=== PATIENT | female | born 1950 | race Caucasian/White ===

== ENCOUNTER 2017-04-06 11:20 | Emergency (ER) | payer MEDICARE, OTHER ==
--- NOTE | ~2017-04-06 | CR173 ---
[facility] A Service of [facility] & [facility] RADIOLOGY TEXT RESULTS PATIENT: LOUIS BRAND LOCATION: [facility] : 52 UNIT #: [id number] AGE: [address]: Delilah Arita SEX: F ORDER DR: [id number] [facility] [address] [place], [place] [address] [id number] P MR#: [id number] Acc #: [id number] NAME: LOUIS BRAND : 1950 SEX: F STUDY DATE/TIME: UNIT: [facility] ROOM: STUDY DESCRIPTION: CR Knee 3 Views Rt Attending Physician: Delilah Arita Pa-C Ordering Physician: Ed Doc Lucina Lerma Primary Care Physician: Daljit Venegas M.D. MEDICAL IMAGING REPORT This report is preliminary unless electronic signature is present EXAM Right knee 3 views 04/06/2017 1221 hours HISTORY Patient fell out of bed today with pain in right knee COMPARISON Right tibia and fibula 10/20/2010 FINDINGS AP, cross-table lateral, and sunrise views demonstrate no joint effusion, fracture or dislocation. IMPRESSION There is no joint effusion, fracture or dislocation. Dictated by... Tanya Riley M.D. THIS IS AN ELECTRONICALLY VERIFIED REPORT Tanya Riley M.D. at 04/06/2017 2:30 PM Joi TD: 04/06/2017 13:07 JOB #: [id number] MEDICAL IMAGING REPORT Page 1 of 1 COPY
--- NOTE | ~2017-04-06 | CT71 ---
[facility] A Service [facility] RADIOLOGY TEXT RESULTS PATIENT: LOUIS BRAND LOCATION: [facility] : 52 UNIT #: [id number] AGE: [address]: Delilah Arita SEX: F ORDER DR: [id number] [address] [address] [id number] P MR#: [id number] Acc #: [id number] NAME: LOUIS BRAND : 1950 SEX: F STUDY DATE/TIME: 04/06/2017 12:07 UNIT: [facility] ROOM: STUDY DESCRIPTION: CT Head Wo Contrast Attending Physician: Delilah Arita Pa-C Ordering Physician: Ed Doctor [id number] [facility] Primary Care Physician: Daljit Venegas M.D. MEDICAL IMAGING REPORT This report is preliminary unless electronic signature is present EXAM CT head INDICATION Fall off a sofa this morning. Bruising and swelling of the left forehead area. Loss of consciousness. TECHNIQUE CT of the head without contrast. This CT exam was performed with one or more of the following radiation dose reduction techniques: automatic exposure control, adjustment of mA and/or kV according to patient size, and iterative reconstruction. COMPARISON None available. FINDINGS There is a small superficial hematoma over the left frontal convexity. There is no foreign body or fracture. No acute intracranial hemorrhage, mass lesion, or acute infarct. Rivas matter differentiation is normal. The ventricles and basilar cisterns are normal. No extraaxial collections. IMPRESSION 1. No acute intracranial findings. 2. Mild scalp hematoma over the left frontal convexity. Dictated by... Guzman Reyes M.D. THIS IS AN ELECTRONICALLY VERIFIED REPORT [facility] A Service [facility] RADIOLOGY TEXT RESULTS PATIENT: LOUIS BRAND LOCATION: [facility] : 52 UNIT #: [id number] AGE: [address]: Delilah Arita SEX: F ORDER DR: Guzman Reyes M.D. at 04/06/2017 3:37 PM Paul TD: 04/06/2017 12:49 JOB #: [id number] MEDICAL IMAGING REPORT Page 1 of 1 COPY
[~2017-04-06 11:20] MED LIST: AIRGO ROLLING W1 PKT MC; AMITIZA24 MCG PO; AMLODIPINE BESYL5 MG PO; BACTRIM DS TABL1 TA1 PO; CRESTOR PO; CRESTOR10 MG PO; CYMBALTA PO; CYMBALTA30 MG PO; DAILY VALUE1 EACH PO; FENOFIBRATE150 MG PO; FISH OIL 1,2001 CAP PO; FLEXERIL10 MG PO; GINKGO BILOBA120 M1 PO; HCTZ PO; HYDROCODON-ACE1 EAC4 PO; HYDROCODONE-APA1 T54 PO; HYDROXYZINE HCL10 MG PO; IBUPROFEN800 MG PO; LAMICTAL PO; LAMICTAL100 MG PO; LEVOXYL150 MC1 PO; LEVOXYL150 MCG PO; LIPITOR PO; LIPITOR40 MG PO; LORTAB 5/500 TA1 TA1 PO; MEDROL DOSEPAK4 MG PO; NASONEX17 GM; NICOTINE TRANSD21 MG EXT; PHENERGAN25 MG PO; PRAVASTATIN SOD20 MG PO; PREVACID PO; PREVACID SOLUTA30 M1 PO; SEROQUEL XR150 MG PO; TERBINAFINE (L250 M1 PO; TRILIPIX135 MG PO; VANCOMYCIN1.25 GM/25 IV; VITAMIN D1000 UNIT PO; WELLBUTRIN PO; WELLBUTRIN SR150 MG PO; ZYPREXA PO; ZYPREXA15 MG PO
== END 2017-04-06 12:56 | disposition home or self-care (01) ==
LOC: CFTX 11:20 → CED 11:20 → CFTX 11:25
DX: S86.911A Strain of unspecified muscle(s) and tendon(s) at lower leg level, right leg, initial encounter (principal); S00.03XA Contusion of scalp, initial encounter; I10 Essential (primary) hypertension; K21.9 Gastro-esophageal reflux disease without esophagitis; F17.200 Nicotine dependence, unspecified, uncomplicated; Z88.5 Allergy status to narcotic agent; Z79.899 Other long term (current) drug therapy; W18.30XA Fall on same level, unspecified, initial encounter; Y92.009 Unspecified place in unspecified non-institutional (private) residence as the place of occurrence of the external cause
CPT/HCPCS: 70450; 73562; 99284

== ENCOUNTER 2017-04-08 18:53 | Observation (INO) | payer MEDICARE, OTHER ==
[~2017-04-08] VITALS: Ht 172.7 cm; Wt 94.2 kg
--- NOTE | ~2017-04-08 | CT71 ---
[facility] A Service of [facility] & [facility] RADIOLOGY TEXT RESULTS PATIENT: LOUIS BRAND LOCATION: [facility] 317-01 : 54 UNIT #: [id number] AGE: [address]: Florence Shepherd MD SEX: F ORDER DR: [id number] [facility] [address] [facility]. [place], [place] [address] [id number] I MR#: [id number] Acc #: [id number] NAME: LOUIS BRAND : 1950 SEX: F STUDY DATE/TIME: 04/08/2017 19:43 UNIT: [address] ROOM: [facility] STUDY DESCRIPTION: CT Head Wo Contrast Attending Physician: Ilan David M.D. Ordering Physician: Heber Lerma M.D. Primary Care Physician: Daljit Venegas M.D. MEDICAL IMAGING REPORT This report is preliminary unless electronic signature is present EXAM CT head, noncontrast, 04/08/2017. HISTORY 66-year-old female in the ED after head injury. Fell, striking head [address] on 04/06/2017. Confusion/mental status changes noted. TECHNIQUE CT examination of the head without IV contrast. This CT exam was performed with one or more of the following radiation dose reduction techniques: automatic exposure control, adjustment of mA and/or kV according to patient size, and iterative reconstruction. FINDINGS No acute intracranial abnormality is demonstrated. Small left supraorbital scalp contusion. No visible skull fracture. Mild generalized cerebral atrophy. No evidence of intracranial hemorrhage, mass, mass effect, cerebral edema or progressive ventricular enlargement. IMPRESSION 1. No acute intracranial abnormality. 2. Small left supraorbital scalp contusion. No skull fracture. 3. Stable mild diffuse chronic changes as noted. 4. No change since 04/06/2017. Dictated by... Kb Sage M.D. THIS IS AN ELECTRONICALLY VERIFIED REPORT Kb Sage M.D. at 04/09/2017 4:55 PM RGW/jt [facility] A Service of [facility] & [facility] RADIOLOGY TEXT RESULTS PATIENT: LOUIS BRAND LOCATION: [facility] 317-01 : 52 UNIT #: [id number] AGE: [address]: Florence Shepherd MD SEX: F ORDER DR: TD: 04/09/2017 00:37 JOB #: [id number] MEDICAL IMAGING REPORT Page 1 of 1 COPY
--- NOTE | ~2017-04-08 | EKG ---
PATIENT: LOUIS BRAND UNIT #: [id number] Ventricular Rate: 68 BPM Atrial Rate: 68 BPM P-R Interval: 156 ms QRS Duration: 92 ms Q-T Interval: 396 ms QTC Calculation(Bezet): 421 ms P Falkland: 62 degrees Calculated R Falkland: 29 degrees Calculated T Falkland: 65 degrees Diagnosis Line: Normal sinus rhythm Diagnosis Line: Normal ECG Diagnosis Line: When compared with ECG of 03-JAN-2016 14:07, Diagnosis Line: No significant change was found Diagnosis Line: Confirmed by IAN ZAMUDIO [facility] ([id number]) on Diagnosis Line: 04/09/2017 2:00:12 PM INTERPRETING MD: LIZZ DOAN
--- NOTE | ~2017-04-08 | MR133 ---
[facility] A Service of [facility] RADIOLOGY TEXT RESULTS PATIENT: LOUIS BRAND LOCATION: [facility] 317 : 52 UNIT #: [id number] AGE: [address]: Florence Shepherd MD SEX: F ORDER DR: [id number] [facility] [address] [facility]. [place], [place] [address] [id number] I MR#: [id number] Acc #: [id number] NAME: LOUIS BRAND : 1950 SEX: F STUDY DATE/TIME: 04/09/2017 11:50 UNIT: [address] ROOM: [facility] STUDY DESCRIPTION: MR MRA Neck WWo Contrast Attending Physician: Florence Shepherd M.D. Ordering Physician: Kate Nam M.D. Primary Care Physician: Daljit Venegas M.D. MRI CENTER REPORT This report is preliminary unless electronic signature is present. EXAM MRA neck. INDICATIONS Fall 3 days ago. Altered mental status. Short-term memory loss. Trauma. TECHNIQUE 3-D [id number] MRA of the neck was performed without contrast. Contrast enhanced MRA was then performed. COMPARISON None available. FINDINGS Evaluation for significant stenosis is based upon the NASCET criteria. There is a three-vessel aortic arch. Both common carotid arteries and the internal carotid arteries are widely patent. There is no evidence for significant stenosis. The vertebral arteries are patent with antegrade flow. IMPRESSION 1. No evidence of a significant carotid arterial stenosis. Dictated by... Guzman Reyes M.D. THIS IS AN ELECTRONICALLY VERIFIED REPORT Guzman Reyes M.D. at 04/10/2017 5:13 PM BUTCH/sincere TD: 04/09/2017 17:58 JOB #: [id number] [facility] A Service of [facility] RADIOLOGY TEXT RESULTS PATIENT: LOUIS BRAND LOCATION: [facility] 317 : 52 UNIT #: [id number] AGE: [address]: Florence Shepherd MD SEX: F ORDER DR: MRI CENTER REPORT Page 1 of 1 COPY
--- NOTE | ~2017-04-08 | MR122 ---
[facility] A Service of [facility] RADIOLOGY TEXT RESULTS PATIENT: LOUIS BRAND LOCATION: [facility] : 52 UNIT #: [id number] AGE: [address]: Florence Shepherd MD SEX: F ORDER DR: [id number] [facility] [address] [facility]. [place], [place] [address] [id number] I MR#: [id number] Acc #: [id number] NAME: LOUIS BRAND : 1950 SEX: F STUDY DATE/TIME: 04/09/2017 11:50 UNIT: [facility]U ROOM: [address] [place] [address] DESCRIPTION: MR MRA Head Wo Contrast Attending Physician: Florence Shepherd M.D. Ordering Physician: Physician Non-Staff Primary Care Physician: Daljit Venegas M.D. MRI CENTER REPORT This report is preliminary unless electronic signature is present. EXAM MRI head INDICATIONS Fall. Dizziness. IMPRESSION Fall. Altered mental status. Short-term memory loss. TECHNIQUE 3-D tnas-[id number] MRA of the head without contrast. COMPARISON MRI brain 04/03/2017. FINDINGS The intracranial internal carotid arteries are patent. There is no evidence of a significant stenosis. The middle cerebral arteries and the anterior cerebral arteries are patent. The anterior communicating artery is patent. Both posterior communicating arteries are patent. The vertebral basilar arteries and the posterior cerebral arteries are within normal limits. There is no evidence of a significant vascular stenosis, thrombosis, or aneurysm. Both middle meningeal arteries are patent. Please note there is some attenuation of the right middle cerebral artery near the trifurcation, however, this appears to be used due to some signal loss of this area, rather than a true stenosis. There could be some mild atherosclerotic disease in this area, however. IMPRESSION 1. No evidence of a significant vascular thrombosis or aneurysm. 2. There is some narrowing of the right middle cerebral artery near [facility] A Service of [facility] RADIOLOGY TEXT RESULTS PATIENT: LOUIS BRAND LOCATION: [facility] : 52 UNIT #: [id number] AGE: [address]: Florence Shepherd MD SEX: F ORDER DR: the trifurcation, however there is also signal loss in this region which may partially account for the poor signal in this area. There is probably some mild atherosclerotic disease, however, the vessels are all widely patent all widely patent. Dictated by... Guzman Reyes M.D. THIS IS AN ELECTRONICALLY VERIFIED REPORT Guzman Reyes M.D. at 04/10/2017 5:13 PM BUTCH/arturo TD: 04/09/2017 18:14 JOB #: [id number] MRI CENTER REPORT Page 1 of 1 COPY
--- NOTE | ~2017-04-08 | HP ---
Unit #: [id number] #: [id number] Patient: LOUIS BRAND [id number] [address] [place], [place] [address] [id number] I MR#: [id number] NAME: LOUIS BRAND ROOM: 317 Age: 66 Sex: F Admission Date: 04/08/2017 : 1950 Attending Physician: Florence Shepherd M.D. Primary Care Physician: Daljit Venegas M.D. HISTORY AND PHYSICAL CHIEF COMPLAINT Change in mental status. DISCUSSION This is a 66-year-old female, with past medical history of hypothyroidism, dyslipidemia, bipolar, GERD, hypertension, chronic constipation, diabetes, chronic back pain. She presented to the emergency room with chief complaint of change in mental status, slightly being confused. She knows where she is right now, hospital, but did not tell me the right date of and year. She, on work up, found to have marijuana in urine, otherwise, all workup unremarkable. She has been admitted for change in mental status. She denies chest pain. She has been having, also, some nausea but denies fever, chills, cough, or any other complaint. She had a fall two days ago at home with CT of the head being negative. She was complaining of slight ankle pain and x-ray of knee was, also, negative. She denies any other complaint. PAST MEDICAL HISTORY 1. History of dyslipidemia. 2. Hypothyroidism. 3. Bipolar. 4. GERD. 5. Hypertension. 6. Chronic constipation. 7. Diabetes. 8. Chronic back pain. PAST SURGICAL HISTORY 1. History of basal cell carcinoma of the right foot and also skin cancer of right side of face status post excision. 2. History of hysterectomy. 3. Left foot, ORIF. 4. History of breast implant and removal. 5. History of colonoscopy. 6. Tonsillectomy. 7. Adenoidectomy. 8. History of epidural steroid injection. ALLERGIES She is allergic to morphine which causes itching. HOME MEDICATIONS Medications from home is the followin. Neurontin 100 mg at bedtime p.r.n. Unit #: [id number] #: [id number] Patient: LOUIS BRAND 2. Olanzapine 20 mg at bedtime p.r.n. 3. Baclofen three times daily 10 mg 4. Lipitor 40 mg daily 5. Januvia 100 mg daily 6. Amlodipine 10 mg daily 7. Amitiza 24 mcg twice daily 8. Linzess 145 mcg daily 9. Promethazine 4.5 mg three times daily p.r.n. 10. Lasix 20 mg daily 11. Fenofibrate 150 mg daily 12. Levothyroxine 50 mcg daily 13. Lamictal 200 mg twice daily 14. Cymbalta 60 mg twice daily 15. Prevacid 20 mg daily SOCIAL HISTORY She use to smoke two packs daily for fifty years, she is using right now, electronic cigarettes. She denies any illicit drug use though marijuana is positive in the urine. REVIEW OF SYSTEMS Negative except in history of present illness. PHYSICAL EXAMINATION GENERAL: Middle-aged female lying in the bed comfortably, currently not in any distress. She is alert, awake, oriented x1, not in any distress. VITAL SIGNS: Current vitals are following, temperature 8s 98.4, heart rate 71, respiratory rate 19, blood pressure 175/88, oxygen 97% on room air. HEENT EXAMINATION: Pupils equal reactive to light. Head: Normocephalic and atraumatic. NECK: Supple. No jugular venous distention. No thyromegaly. HEART: S1 and S2, regular rate and rhythm. LUNGS: Clear to auscultation bilaterally. No rhonchi. No wheezing. ABDOMEN: Soft, nontender, and nondistended. Bowel sounds are positive. HEART: S1 and S2 regular rate and rhythm. ABDOMEN: Soft, nontender, nondistended. Bowel sounds positive. EXTREMITIES: Inspection normal. No cyanosis, no clubbing, and no edema. SKIN: No rash. PSYCH: Normal mood and affect. DIAGNOSTIC STUDIES LABORATORY: Laboratory workup is the following, Urine drug screen positive for marijuana. Urinalysis is negative. Ammonia level is 35. Chemistry, sodium 140, potassium 3.3, chloride 106, C02 28, glucose 131, BUN 9, creatinine 1.5. Otherwise LFT within normal limits. INR is 1. White count 7, hemoglobin 13, hematocrit 41, platelets 193. IMAGING: She had a CT scan of the head without contrast which shows no acute intracranial findings, mild scalp hematoma over the left frontal convexity. X-ray of the right knee, no acute finding, no joint effusion fracture or dislocation. ASSESSMENT/PLAN 1. Change in mental status, questionable etiology, CT scan is negative, will get MRI of the brain, will ask neurology, Dr. Nam to Unit #: [id number] #: [id number] Patient: LOUIS BRAND evaluate. 2. Status post fall, CT scan showed mild scalp hematoma. 3. Mild hypokalemia, replace. 4. Urine toxicology positive for marijuana. 5. History of dyslipidemia. 6. Hypothyroidism, continue Synthroid, recheck TSH. 7. History of bipolar. 8. GERD. 9. Hypertension. 10. Chronic constipation. 11. Diabetes, continue Januvia, and place on sliding scale. 12. History of chronic back pain. 13. DVT prophylaxis, will place the patient on Lovenox 30 mg subcu daily Dictated by Lucnia Michelle TD: 04/09/2017 07:13 JOB #: [id number] HISTORY AND PHYSICAL Page 1 of 1 X X HISTORY AND PHYSICAL
--- NOTE | ~2017-04-08 | CO ---
Unit #: [id number] #: [id number] Patient: LOUIS BRAND [id number] [facility] [address] [place], [place] [address] [id number] I MR#: [id number] NAME: LOUIS BRAND ROOM: 317 Age: 66 Sex: F Admission Date: 04/08/2017 : 1950 Attending Physician: Florence Shepherd M.D. Primary Care Physician: Daljit Venegas M.D. Consultation Date: 04/09/2017 CONSULTATION REPORT PRIMARY CARE PHYSICIAN Daljit Venegas M.D. REASON FOR CONSULTATION Mental status changes. PATIENT IDENTIFICATION This is a 66-year-old, right-handed white female, who was evaluated in room 317 at [facility]. SOURCE OF INFORMATION The patient and evaluation done by admitting team. PROBLEM LIST 1. History of bipolar disorder. 2. Hypothyroidism. 3. Dyslipidemia. 4. GERD. 5. Hypertension. 6. Chronic constipation. 7. Diabetes. 8. Chronic back pain. 9. History of breast implant and removal. 10. History of hysterectomy. 11. History of basal cell carcinoma, right foot and also skin. Cancer of the right side of the face, status post excision. 12. Left foot ORIF. 13. History of colonoscopy. 14. Tonsillectomy. 15. Adenoidectomy. 16. History of epidural steroid injections. 17. Fall lately. 18. Looks like she has had evaluation for cognitive decline in the past. HISTORY OF PRESENT ILLNESS This is a 66-year-old right-handed white female, who was actually brought in yesterday because she was confused. Her history is very sketchy, but it looks like she ended up coming to the hospital on 04/06/2017 and that was after a fall. The patient had some scalp and left frontal very small hematoma. She said that she fell at night, but she cannot tell me anymore than that. She seemed to have some either attention problem or memory problems or cognitive changes and it looks like this is something that has been going on for quite some time. She is bipolar and she says that she know she is at [facility], this is Tuesday and then she starts Unit #: [id number] #: [id number] Patient: LOUIS BRAND struggling as she cannot concentrate. She cannot tell me the month, though she is trying to go through the months to see which month this is. She can name. She can follow commands. She can repeat. She is on a lot of medication and I am uncertain if she is taking them right because she says that she lives alone. She cannot tell me if she passed out. There is no history of seizures. There is no history of epilepsy. There is no history of stroke. She has had two CTs, one on 04/06/2017 and one on 04/08/2017, they looked okay. Her labs also do not look bad. Again, she has been seen by Dr. Masterson, but we do not know any of the cognitive details. She is otherwise nonfocal. Urine drug screen was positive for marijuana which is very nonspecific in this situation. PAST MEDICAL HISTORY As discussed above. PAST SURGICAL HISTORY As discussed above. ALLERGIES Morphine which causes itching. HOME MEDICATIONS Neurontin 100 mg at bedtime, olanzapine 20 mg at bedtime as needed, baclofen 10 mg t.i.d., Lipitor 40 mg, Januvia 100 mg, amlodipine 10 mg, Amitiza 24 mcg daily, Linzess 145 mcg daily, promethazine t.i.d., Lasix 20 mg, fenofibrate 150 mg, levothyroxine 50 mcg, Lamictal 200 mg b.i.d., Cymbalta 60 mg b.i.d., daily. FAMILY HISTORY Reviewed. There is nothing suggesting primary neurologic issue. SOCIAL HISTORY The patient used to smoke, she for 50 years. She now uses electronic cigarettes. She is . She is disabled. She denies drug use. She denies alcohol use. Urine drug screen positive for marijuana, but it could be medication related? REVIEW OF SYSTEMS Detailed review of system was attempted. CONSTITUTIONAL: The patient denies any recent weight issues, fever, chills, rigor, or sweats. HEENT: No headaches. No double vision, earache, runny nose, or sore throat. CARDIOVASCULAR: No chest pain, clubbing, cyanosis, orthopnea, or palpitation. PULMONARY: No shortness of air, cough, or expectoration. GI: No nausea, vomiting, diarrhea, or constipation. : No genitourinary issues. EXTREMITIES: No extremity problems. Otherwise, she has had back problems. PSYCHIATRIC: She has had significant psychiatric issue. NEUROLOGIC: Likely cognitive changes. No other hematologic, dermatologic, or endocrine problems known to me. She has had a few cancers removed. She is diabetic though. PHYSICAL EXAMINATION VITAL SIGNS: Temperature 98.4, pulse 65, respirations 18, blood pressure Unit #: [id number] #: [id number] Patient: LOUIS BRAND 136/81. Pain was 0 to 5/10. O2 saturations of 96% to 100%. Weight of 211 pounds. BMI was 32. Her blood pressure max was 175 systolic and at one time 129 diastolic was documented that questionable though. NEUROLOGIC: The patient is awake. She is alert. She is oriented to herself, place, day of the week. She can name. She can follow commands. She can repeat. No right or left confusion. No finger agnosia. Cranial examination demonstrates full george of vision to confrontation. Eye movements are conjugate. I did not see any ptosis. I did not see any nystagmus. Extraocular movements are intact. Pupils are round, reactive to light, and accommodation, size about 3 mm. Sensation on the face and scalp are normal. Strength of muscles of facial expression normal. Hearing seemed to be intact bilaterally. Tongue was midline. Uvula was midline. Palate elevation was normal. Head turning and shoulder shrugs were unremarkable. Motor examination demonstrated normal bulk, tone. Strength was essentially 5/5. Sensory examination intact for soft touch and pain sensation. No extinction was seen. Romberg was not evaluated. Gait examination was deferred. I could not get any reflexes. Toes are downgoing. Coordination was normal for fbdbuo-hb-eaqf-to-finger. DIAGNOSTIC STUDIES IMAGING STUDIES: CT head reviewed. LABORATORY RESULTS: Random glucose was 108 to 131. Chemistry profile otherwise looked okay. TSH was 0.05. White count is 7.8. Urinalysis was okay. IMPRESSION 1. Very nonspecific issues and the question is;. a. What happened 2 days ago. b. Was there was a syncope. She said that she fell at night and there were no witnesses. She has some frontal hematoma which is scalp hematoma, nothing major otherwise, was just a mechanical fall. c. What about medication. She is taking a lot medication. 2. Cognitive changes, looks like she has seen Dr. Masterson several years ago for the same problem. I am going to do a metabolic workup, labs, I will do an MRI. If it is okay, my recommendation would be to have psychiatry see her inpatient or outpatient, have cognitive evaluation done probably as outpatient and follow up with Dr. Masterson. This does TIA. Seizure has not been documented, but I do recommend EEG at certain point soon. I will put her on aspirin and we will go from there. If the MRI is negative or something else shows up or we have better history, then we will definitely revisit this whole situation. Call me for any other questions, issues, or concerns and I will evaluate and treat as indicated based on differential diagnoses. Dictated by... Kate Nam M.D. Unit #: [id number] #: [id number] Patient: KIRSTEN BRANDAYLA ACEVEDO/abel TD: 04/12/2017 03:49 JOB #: [id number] CONSULTATION REPORT Page 1 of 1 X Kate Nam MD X CONSULTATION REPORT
--- NOTE | ~2017-04-08 | DS ---
Unit #: [id number] #: [id number] Patient: LOUIS BRAND [id number] [address] [address] [id number] I MR#: [id number] NAME: LOUIS BRAND ROOM: 317 Age: 66 Sex: F Admission Date: 04/08/2017 : 1950 Discharge Date: 04/10/2017 Attending Physician: Florence Shepherd M.D. Primary Care Physician: Daljit Venegas M.D. DISCHARGE SUMMARY DISCHARGE DIAGNOSES 1. Change in mental status secondary to toxic metabolic encephalopathy present on admission, likely from polypharmacy. 2. Status post fall. CT shows mild scalp hematoma. 3. Hypokalemia. 4. Marijuana abuse. 5. Hyperlipidemia. 6. Hypothyroidism. 7. History of bipolar. 8. Gastroesophageal reflux disease. 9. Hypertension. 10. Chronic constipation. 11. Currently having diarrhea. 12. Diabetes mellitus type 2. 13. Chronic back pain. CONSULTATION Dr. Nam. PROCEDURES None. DIAGNOSTIC STUDIES LABORATORY: Vitamin B12 377. Sodium 141, potassium 3.7, creatinine 1.4. Liver enzymes normal. WBC 6.5, hemoglobin 13.3, platelets 183. Stool C. diff. pending. IMAGING: MRI of the brain: No acute changes. MRA of the head: No evidence of thrombus or aneurysms. MRA of the neck shows no obstruction. ALLERGIES Morphine. DISCHARGE MEDICATIONS 1. Lamictal 200 mg p.o. b.i.d. 2. Cymbalta 60 mg p.o. b.i.d. 3. Januvia 100 mg p.o. daily. 4. Promethazine 12.5 mg three times daily p.r.n. nausea. 5. Fenofibrate 150 mg p.o. daily. 6. Norvasc 10 mg daily. 7. Lasix 20 mg daily. 8. Linaclotide 145 mcg p.o. daily. 9. Lipitor 40 mg daily. 10. Amitiza 24 mcg p.o. b.i.d. Unit #: [id number] #: [id number] Patient: LOUIS BRAND 11. Prevacid 30 mg p.o. daily. 12. Zyprexa 20 mg p.o. daily. 13. Levothyroxine 150 mcg p.o. daily. HOSPITALIZATION COURSE This 66 year old admitted because of change in mental status. Change in mental status secondary to toxic metabolic encephalopathy likely from polypharmacy, according to the family. The patient was recently placed on Baclofen and, since then, she has more confusion which has been discontinued. Currently, patient back to baseline, according to family. The patient will be discharged and follow with Neurology as an outpatient for followup. Diarrhea, currently better. C. diff. sent. Results pending at the time of dictation. Marijuana abuse, advised to quit. Hypertension, stable. Diabetes mellitus type 2. Continue with current home medications. Discharge home. Follow with family physician in one week's time. Follow with Dr. Bob Masterson in four weeks' time. Dictated by... Florence Shepherd M.D. ELBERT/nabil TD: 04/10/2017 15:15 JOB #: [id number] DISCHARGE SUMMARY Page 1 of 1 X Florence Shepherd MD X DISCHARGE SUMMARY
--- NOTE | ~2017-04-08 | MR17 ---
[facility] A Service [facility] RADIOLOGY TEXT RESULTS PATIENT: LOUIS BRAND LOCATION: [facility] : 54 UNIT #: [id number] AGE: [address]: Florence Shepherd MD SEX: F ORDER DR: [id number] [facility] [address] [place], [place] [address] [id number] I MR#: [id number] Acc #: [id number] NAME: LOUIS BRAND : 1950 SEX: F STUDY DATE/TIME: 04/09/2017 11:50 UNIT: [facility] PCU ROOM: [facility] STUDY DESCRIPTION: MR Brain WWo Contrast Attending Physician: Florence Shepherd M.D. Ordering Physician: Kate Nam M.D. Primary Care Physician: Daljit Venegas M.D. MRI CENTER REPORT This report is preliminary unless electronic signature is present. EXAM MR brain with and without contrast INDICATION Altered mental status. Short-term memory loss. TECHNIQUE Multiplanar MRI of the brain with and without contrast (20 mL MultiHance IV contrast). COMPARISON MRI of the brain dated 07/08/2015. FINDINGS Unfortunately multiple sequences are degraded by motion artifact. Midline structures and craniocervical junction within normal limits. There is generalized global cerebral atrophy. There is no abnormal enhancing mass or lesion following administration of contrast. No intracranial hemorrhage or acute intracranial ischemia. The ventricles are normal in size configuration. There is no extraaxial collections. Vascular flow voids are unremarkable; however, please refer to the MRA of the head for further details. Visualized paranasal sinuses and the orbits are within normal limits. IMPRESSION There is no acute intracranial findings. No intracranial ischemia or hemorrhage. Dictated by... Guzman Reyes M.D. [facility] A Service [facility] RADIOLOGY TEXT RESULTS PATIENT: LOUIS BRAND LOCATION: [facility] : 54 UNIT #: [id number] AGE: [address]: Florence Shepherd MD SEX: F ORDER DR: THIS IS AN ELECTRONICALLY VERIFIED REPORT Guzman Reyes M.D. at 04/10/2017 5:13 PM BUTCH/arturo TD: 04/09/2017 18:00 JOB #: [id number] MRI CENTER REPORT Page 1 of 1 COPY
[2017-04-08 19:27] LABS: BASOPHIL% 0.6 % (0-2.5); DIFF IND NO; EOSINOPHIL# 0.1 X10e3 (0-0.7); EOSINOPHIL% 0.7 % (0.0-7.0); HEMATOCRIT 41.2 % (35.0-45.0); HEMOGLOBIN 13.4 gm/dL (12.0-16.0); LYMPHOCYTE# 3.3 X10e3 (1.0-3.5); LYMPHOCYTE% 42.6 % (17.0-45.0); MEAN CELL VOLUME 87.4 FL (83-96); MEAN CORPUSCULAR HEMOGLOBIN 28.5 PG (28-34); MEAN CORPUSCULAR HGB CONC 32.6 g/dL (30-36); MEAN PLATELET VOLUME 10.6 FL (6.5-11.5); MONOCYTE# 0.7 X10e3 (0-1.0); MONOCYTE% 9.4 % (3.0-12.0); NEUTROPHIL# 3.7 X10e3 (1.5-7.1); NEUTROPHIL% 46.7 % (40-75); PLATELET COUNT 193 X10e3 (140-420); RED BLOOD COUNT 4.72 X10e (3.90-5.30); RED CELL DISTRIBUTION WIDTH 15.2 % (11.0-15.5); WHITE BLOOD COUNT 7.8 X10e3 (4.0-10.5)
[2017-04-08 19:35] LABS: PARTIAL THROMBOPLASTIN TIME 28.6 SECONDS (23.5-31.3); PROTHROMBIN TIME (PATIENT) 10.6 SECONDS (10.0-11.7)
[2017-04-08 19:44] LABS: ALBUMIN SERUM 4.3 g/dL (3.5-5.0); ALKALINE PHOSPHATASE 52 U/L (32-92); ALT (SGPT) 19 U/L (10-40); AST (SGOT) 25 U/L (10-42); BILIRUBIN, DIRECT 0.1 mg/dL (0.0-0.2); BILIRUBIN,INDIRECT 0.5 mg/dL (0.0-0.9); BILIRUBIN,TOTAL 0.6 mg/dL (0.2-2.0); BLOOD UREA NITROGEN 9 mg/dL (9-23); CALCIUM SERUM 9.5 mg/dL (8.4-10.2); CARBON DIOXIDE 28 mmol/L (22-31); CHLORIDE 106 mmol/L (100-111); CREATININE SERUM 1.5 mg/dL (0.6-1.4); GLOM FILT RATE Estimated 36.5 mL/min (>60); GLUCOSE FASTING 131 mg/dL (70-110); POTASSIUM 3.3 mmol/L (3.5-5.1); PROTEIN TOTAL SERUM 7.4 g/dL (6.0-8.3); SALICYLATE <4.0 mg/dL; SODIUM 140 mmol/L (135-145)
[2017-04-08 19:46] LABS: ACETAMINOPHEN <10 ug/mL; ALCOHOL BLOOD <5 mg/dL ([, 0])
[2017-04-08 20:05] LABS: URINE SOURCE CLEAN CATCH
[2017-04-08 20:17] LABS: URINE APPEARANCE CLEAR; URINE BILIRUBIN NEG (NEG); URINE BLOOD NEG (NEG); URINE COLOR YELLOW; URINE GLUCOSE NEG (NEG); URINE KETONE NEG (NEG); URINE LEUKOCYTE ESTERASE NEG (NEG); URINE NITRATE NEG (NEG); URINE PH 6.5 (5-8); URINE PROTEIN NEG (NEG); URINE SPECIFIC GRAVITY 1.013 (1.003-1.035)
[2017-04-08 20:21] LABS: CULTURE INDICATED? NO
[2017-04-08 20:26] LABS: AMPHETAMINE NEG (NEG); BARBITURATES NEG (NEG); BENZODIAZEPINES NEG (NEG); COCAINE NEG (NEG); MARIJUANA POS (NEG); OPIATES NEG (NEG); TRICYCLIC ANTIDEPRESSANTS NEG (NEG); U METHADONE NEG (NEG)
[2017-04-08] MEDS ORDERED: AMLODIPINE BESY10 MG PO (21:06)
[2017-04-08] MEDS ORDERED: AMITIZA24 MCG PO (21:07)
[2017-04-08] MEDS ORDERED: LASIX20 MG PO (21:08)
[2017-04-08] MEDS ORDERED: PROMETHAZINE12.5 MG PO (21:08)
[2017-04-08] MEDS ORDERED: LINZESS145 MCG PO (21:08)
[2017-04-08] MEDS ORDERED: OLANZAPINE20 MG PO (21:09)
[2017-04-08] MEDS ORDERED: NEURONTIN100 MG PO (21:09)
[2017-04-08] MEDS ORDERED: LIPITOR40 MG PO (21:10)
[2017-04-08] MEDS ORDERED: JANUVIA PO (21:10)
[2017-04-08] MEDS ORDERED: BACLOFEN5 GM PO (21:10)
[2017-04-09 06:04] LABS: BUN/CREATININE RATIO 6.42; CALCIUM SERUM 9.5 mg/dL (8.4-10.2); CREATININE SERUM 1.4 mg/dL (0.6-1.4); GLOM FILT RATE Estimated 39.6 mL/min (>60); POTASSIUM 4.3 mmol/L (3.5-5.1)
[2017-04-09 14:58] LABS: FREE T3 3.3 pg/mL (2.5-3.9)
[2017-04-09 14:59] LABS: FREE THYROXIN (T4) 1.38 ng/dL (0.58-1.64)
[2017-04-10 07:25] LABS: HEMATOCRIT 40.6 % (35.0-45.0); HEMOGLOBIN 13.3 gm/dL (12.0-16.0); MEAN CELL VOLUME 87.3 FL (83-96); MEAN CORPUSCULAR HEMOGLOBIN 28.7 PG (28-34); MEAN CORPUSCULAR HGB CONC 32.9 g/dL (30-36); RED BLOOD COUNT 4.65 X10e (3.90-5.30); RED CELL DISTRIBUTION WIDTH 14.9 % (11.0-15.5); WHITE BLOOD COUNT 6.5 X10e3 (4.0-10.5)
[2017-04-10 07:30] LABS: ALBUMIN SERUM 3.7 g/dL (3.5-5.0); BILIRUBIN,TOTAL 0.6 mg/dL (0.2-2.0); BUN/CREATININE RATIO 8.57; CALCIUM SERUM 9.5 mg/dL (8.4-10.2); CREATININE SERUM 1.4 mg/dL (0.6-1.4); GLOM FILT RATE Estimated 39.6 mL/min (>60); POTASSIUM 3.7 mmol/L (3.5-5.1); PROTEIN TOTAL SERUM 6.5 g/dL (6.0-8.3)
[2017-04-10 07:44] LABS: FOLATE (FOLIC ACID) 6.2 ng/mL (>5.8)
== END 2017-04-10 14:30 | disposition home or self-care (01) ==
LOC: CED 18:53 → CEDOF 22:30 → CED 22:40 → CEDOF 22:40 → C3A PCU 23:23
PROVIDERS: Emergency Medicine; Internal Medicine; Psychiatry & Neurology Neurology
DX: G92 Toxic encephalopathy (principal); S00.03XA Contusion of scalp, initial encounter; E87.6 Hypokalemia; F12.10 Cannabis abuse, uncomplicated; E78.5 Hyperlipidemia, unspecified; E03.9 Hypothyroidism, unspecified; K21.9 Gastro-esophageal reflux disease without esophagitis; I10 Essential (primary) hypertension; K59.09 Other constipation; E11.9 Type 2 diabetes mellitus without complications; M54.9 Dorsalgia, unspecified; G89.29 Other chronic pain; Z85.828 Personal history of other malignant neoplasm of skin; F17.290 Nicotine dependence, other tobacco product, uncomplicated
CPT/HCPCS: 36415; 70450; 70544; 70549; 70553; 80048; 80053; 80076; 80307; 81003; 82140; 82607; 82746; 82947; 83036; 83630; 83735; 84439; 84443; 84481; 85025; 85027; 85610; 85730; 87493; 93005; 96372; 96374; 99285; A9577; G0378; G0480; J1650; J2405

== ENCOUNTER → 2017-04-25 | Outpatient (CLI) | payer MEDICARE, OTHER ==
[~2017-04-25] MED LIST changes: +AMLODIPINE BESY10 MG PO; +BACLOFEN5 GM PO; +JANUVIA PO; +LASIX20 MG PO; +LINZESS145 MCG PO; +NEURONTIN100 MG PO; +OLANZAPINE20 MG PO; +PROMETHAZINE12.5 MG PO
--- NOTE | ~2017-04-25 | CR151 ---
[facility] A Service of [facility] RADIOLOGY TEXT RESULTS PATIENT: LOUIS BRAND LOCATION: [facility] : 52 UNIT #: [id number] AGE: [address]: DOMINGO CESPEDES MD SEX: F ORDER DR: [id number] [facility] [address] [place], [place] [address] [id number] O MR#: [id number] Acc #: [id number] NAME: LOUIS BRAND : 1950 SEX: F STUDY DATE/TIME: 04/25/2017 13:50 UNIT: [facility] ROOM: STUDY DESCRIPTION: CR Hip Min 2 Views Rt Attending Physician: Domingo Cespedes M.D. Referring Physician: Domingo Cespedes M.D. Ordering Physician: Domingo Cespedes M.D. Primary Care Physician: Domingo Cespedes M.D. MEDICAL IMAGING REPORT This report is preliminary unless electronic signature is present EXAM Right hip 2 views 04/25/2017 HISTORY Right hip pain for 2 weeks status post fall. FINDINGS Two views of the right hip demonstrate no fracture. There is degenerative change with axial narrowing of right hip joint. Osteophytic spurring is seen about the right femoral head. The bones are normally mineralized. There is no soft tissue abnormality. IMPRESSION Degenerative change about the right hip as detailed above. No acute abnormality. Dictated by... Paul Dennis M.D. THIS IS AN ELECTRONICALLY VERIFIED REPORT Paul Dennis M.D. at 04/27/2017 7:37 AM JOEL/ev TD: 04/26/2017 07:37 JOB #: [id number] MEDICAL IMAGING REPORT Page 1 of 1 COPY
--- NOTE | ~2017-04-25 | CR173 ---
[facility] A Service of [facility] & [facility] RADIOLOGY TEXT RESULTS PATIENT: LOUIS BRAND LOCATION: [facility] : 54 UNIT #: [id number] AGE: [address]: DOMINGO CESPEDES MD SEX: F ORDER DR: [id number] [facility] [address] [place], [place] [address] [id number] O MR#: [id number] Acc #: [id number] NAME: LOUIS BRAND : 1950 SEX: F STUDY DATE/TIME: 04/25/2017 13:50 UNIT: [facility] ROOM: STUDY DESCRIPTION: CR Knee 3 Views Rt Attending Physician: Domingo Cespedes M.D. Referring Physician: Domingo Cespedes M.D. Ordering Physician: Domingo Cespedes M.D. Primary Care Physician: Domingo Cespedes M.D. MEDICAL IMAGING REPORT This report is preliminary unless electronic signature is present EXAM Right knee 3 views 04/25/2017 HISTORY Right knee pain status post fall 2 weeks ago. Persistent pain. FINDINGS AP and lateral projection of the knee shows smooth articular anatomy without indication of fracture or dislocation at the major weight-bearing surface of the knee. There is no indication of radiopaque foreign body about the knee surface or joint effusion. IMPRESSION Normal right knee. Dictated by... Paul Dennis M.D. THIS IS AN ELECTRONICALLY VERIFIED REPORT Paul Dennis M.D. at 04/27/2017 7:37 AM JOEL/michelet TD: 04/26/2017 07:43 JOB #: [id number] MEDICAL IMAGING REPORT Page 1 of 1 COPY
== END | disposition home or self-care (01) ==
LOC: CRAD 13:25
DX: M25.561 Pain in right knee (principal); M16.11 Unilateral primary osteoarthritis, right hip
CPT/HCPCS: 73502; 73562

== ENCOUNTER → 2017-06-06 | Outpatient (CLI) | payer MEDICARE, OTHER ==
--- NOTE | ~2017-06-06 | XA30 ---
[facility] A Service of [facility] & [facility] RADIOLOGY TEXT RESULTS PATIENT: LOUIS BRAND [facility] : 54 UNIT #: [id number] AGE: [address]: Hussain Nelson MD SEX: F ORDER DR: [id number] [facility] [address] [place], [place] [address] [id number] O MR#: [id number] Acc #: [id number] NAME: LOUIS BRAND : 1950 SEX: F STUDY DATE/TIME: 06/06/2017 14:28 UNIT: [facility] ROOM: STUDY DESCRIPTION: XA Arthrocentesis Major Joint Attending Physician: Hussain Nelson M.D. Referring Physician: Hussain Nelson M.D. Ordering Physician: Hussain Nelson M.D. Primary Care Physician: Daljit Venegas M.D. MEDICAL IMAGING REPORT This report is preliminary unless electronic signature is present EXAM Right-sided hip injection. INDICATIONS Right hip pain. PROCEDURE The risks, benefits, and alternatives to the procedure were explained to the patient and signed, informed consent was obtained. She was placed supine on the angiographic table and was prepped and draped in usual sterile fashion. Time-out was performed as per protocol. Skin and subcutaneous tissues were anesthetized with buffered lidocaine. A 22-gauge spinal needle was advanced into the joint space. Contrast was injected, which confirmed location within the joint space. I then instilled a combination of lidocaine, bupivacaine, and Depo-Medrol. Needle was then removed and manual pressure was applied until hemostasis was obtained. Patient tolerated the procedure well and there were no immediate complications. Total fluoroscopy time was 0.2 minutes. AK was 14 mGy. IMPRESSION Technically successful fluoroscopically-guided right hip injection. Fluoroscopy was used during the procedure and permanent images were saved. Dictated by... Felisha Pichardo M.D. THIS IS AN ELECTRONICALLY VERIFIED REPORT Felisha Pichardo M.D. at 06/09/2017 5:38 PM AFF/pc TD: 06/08/2017 13:37 [facility] A Service of [facility] RADIOLOGY TEXT RESULTS PATIENT: LOUIS BRAND LOCATION: [facility] #: [id number] : 54 UNIT #: [id number] AGE: [address]: Hussain Nelson MD SEX: F ORDER DR: JOB #: [id number] MEDICAL IMAGING REPORT Page 1 of 1 COPY
== END | disposition home or self-care (01) ==
LOC: CIVR 14:00
PROC: 3E0U33Z Introduction of Anti-inflammatory into Joints, Percutaneous Approach (ICD-10-PCS; principal; 2017-06-06)
PROC: 3E0U3BZ Introduction of Anesthetic Agent into Joints, Percutaneous Approach (ICD-10-PCS; 2017-06-06)
DX: M16.11 Unilateral primary osteoarthritis, right hip (principal)
CPT/HCPCS: 77002; J1030; Q9967